=== PATIENT | male | born 2000 | race Caucasian/White ===

== ENCOUNTER 2018-01-06 09:26 | Emergency (ER) | payer OTHER ==
[~2018-01-06] VITALS: Ht 182.9 cm; Wt 113.4 kg
--- NOTE | 2018-01-06 09:31 | ED.ADGEN ---
Adult General Chief Complaint Chief Complaint Epigastric pain and vomiting HPI HPI The patient was well until this morning at 4 AM when he awoke with epigastric pain and vomiting. His pain was 8/10 in severity, no radiating. No chest pain or SOB. Review of Systems Review of Systems Constitutional: Denies fever or chills Eyes: Denies change in visual acuity, redness, or eye pain HENT: Denies nasal congestion or sore throat Respiratory: Denies cough or shortness of breath Cardiovascular: Denies chest pain or palpitations GI: With epigastric abdominal pain, nausea, vomiting, no bloody stools or diarrhea : Denies dysuria or hematuria Musculoskeletal: Denies back pain or joint pain Integument: Denies rash or skin lesions Neurologic: Denies headache, focal weakness or sensory changes Endocrine: Denies polyuria or polydipsia All other systems were reviewed and found to be within normal limits, except as documented in this note. Family History Family History Sister had cholecystectomy Current Medications Current Medications Current Medications Medications (Trade) Dose Ordered Sig/Rich Start Time Stop Time Status Last Admin Dose Admin Dextrose/Sodium Chloride 1,000 ml @ 125 mls/hr 1X ONCE 01/06/18 12:45 01/06/18 20:44 01/06/18 12:45 125 MLS/HR Famotidine (Pepcid Vial) 20 mg 1X ONCE 01/06/18 10:15 01/06/18 10:16 DC 01/06/18 10:08 20 MG Iohexol (Omnipaque 300 Mg/ml) 75 ml 1X ONCE 01/06/18 11:00 01/06/18 11:01 DC 01/06/18 11:14 75 ML Morphine Sulfate (Morphine 4mg Syringe) 4 mg 1X ONCE 01/06/18 11:00 01/06/18 11:01 DC 01/06/18 10:37 4 MG Ondansetron HCl (Zofran) 4 mg 1X ONCE 01/06/18 10:10 01/06/18 10:11 DC 01/06/18 10:08 4 MG Sodium Chloride 1,000 ml @ 1,000 mls/hr 1X ONCE 01/06/18 10:45 01/06/18 11:44 DC 01/06/18 10:56 1,000 MLS/HR Allergies Allergies Allergies Coded Allergies Type Severity Reaction Last Updated Verified No Known Drug Allergies 01/06/18 No Physical Exam Physical Exam Constitutional: Well developed, well nourished, no acute distress, non-toxic appearance. HENT: Normocephalic, atraumatic, bilateral external ears normal, oropharynx dry , no oral exudates, nose normal. Eyes: PERRLA, EOMI, conjunctiva normal, no discharge. Neck: Normal range of motion, no tenderness, supple, no stridor. Cardiovascular: Heart rate regular rhythm, no murmur Lungs & Thorax: Bilateral breath sounds clear to auscultation Abdomen: Bowel sounds normal, soft, with epigastric and RUQ tenderness, no masses, no pulsatile masses. Skin: Warm, dry, no erythema, no rash. Back: No tenderness, no CVA tenderness. Extremities: No tenderness, no cyanosis, no clubbing, ROM intact, no edema. Neurologic: Alert and oriented X 3, normal motor function, normal sensory function, no focal deficits noted. Psychologic: Affect normal, judgement normal, mood normal. Current Patient Data Vital Signs Vital Signs Date Time Temp Pulse Resp B/P (MAP) Pulse Ox O2 Delivery O2 Flow Rate FiO2 01/06/18 12:22 98 160/99 (119) 98 Room Air 01/06/18 10:57 20 01/06/18 09:26 98.7 Lab Results Laboratory Tests Test 01/06/18 09:55 01/06/18 11:10 White Blood Count 13.4 x10^3/uL (4.0-11.0) H Red Blood Count 5.32 x10^6/uL (4.30-5.70) Hemoglobin 15.5 g/dL (13.0-17.5) Hematocrit 45.2 % (39.0-53.0) Mean Corpuscular Volume 85 fL (79-100) Mean Corpuscular Hemoglobin 29 pg (25-35) Mean Corpuscular Hemoglobin Concent 34 g/dL (31-37) Red Cell Distribution Width 13.3 % (11.5-14.5) Platelet Count 358 x10^3/uL (140-400) Neutrophils (%) (Auto) 80 % (31-73) H Lymphocytes (%) (Auto) 14 % (24-48) L Monocytes (%) (Auto) 6 % (0-9) Eosinophils (%) (Auto) 1 % (0-3) Basophils (%) (Auto) 1 % (0-3) Neutrophils # (Auto) 10.6 x10^3uL (1.8-7.7) H Lymphocytes # (Auto) 1.9 x10^3/uL (1.0-4.8) Monocytes # (Auto) 0.7 x10^3/uL (0.0-1.1) Eosinophils # (Auto) 0.1 x10^3/uL (0.0-0.7) Basophils # (Auto) 0.1 x10^3/uL (0.0-0.2) Sodium Level 138 mmol/L (136-145) Potassium Level 4.6 mmol/L (3.5-5.1) Chloride Level 104 mmol/L (98-107) Carbon Dioxide Level 23 mmol/L (21-32) Anion Gap 11 (6-14) Blood Urea Nitrogen 16 mg/dL (8-26) Creatinine 0.8 mg/dL (0.7-1.3) Estimated GFR (Cockcroft-Gault) 124.5 BUN/Creatinine Ratio 20 (6-20) Glucose Level 130 mg/dL (70-99) H Calcium Level 9.5 mg/dL (8.5-10.1) Total Bilirubin 0.3 mg/dL (0.2-1.0) Aspartate Amino Transferase (AST) 19 U/L (15-37) Alanine Aminotransferase (ALT) 27 U/L (16-63) Alkaline Phosphatase 153 U/L (46-116) H Total Protein 7.7 g/dL (6.4-8.2) Albumin 4.2 g/dL (3.4-5.0) Albumin/Globulin Ratio 1.2 (1.0-1.7) Lipase 124 U/L (73-393) Urine Collection Type Unknown Urine Color Yellow Urine Clarity Clear Urine pH 6.0 Urine Specific [place] 1.025 Urine Protein Neg (NEG-TRACE) Urine Glucose (UA) Neg mg/dL (NEG) Urine Ketones (Stick) Neg mg/dL (NEG) Urine Blood Trace (NEG) Urine Nitrite Neg (NEG) Urine Bilirubin Neg (NEG) Urine Urobilinogen Dipstick 0.2 mg/dL (0.2 mg/dL) Urine Leukocyte Esterase Neg (NEG) Urine RBC 0 /HPF (0-2) Urine WBC 0 /HPF (0-4) Urine Squamous Epithelial Cells None /LPF Urine Bacteria 0 /HPF (0-FEW) Urine Mucus Slight /LPF EKG EKG [] Radiology/Procedures Radiology/Procedures [address] [address] IMAGING REPORT Signed PATIENT: JAYME HOFF ACCOUNT: [id number] : 2000 LOCATION: ER AGE: 17 SEX: M EXAM STATUS: PRE ER ORD. PHYSICIAN: GABRIEL TAYLOR MD REASON: pain vomiting PROCEDURE: ACUTE ABDOMEN SERIES Acute Abdominal Series: Technique: PA view of the chest and supine and upright views of the abdomen were obtained. History: Pain. Comparison: None. Findings: The lungs and pleural margins are clear. There is air and stool scattered throughout the colon. There is a paucity small bowel gas. There is no free air. Impression: Radiographically normal acute abdominal series. Electronically signed by: Marjan Chan III, MD (01/06/2018 10:13 AM) [facility] DICTATED AND SIGNED BY: MARJAN CHAN III, MD DATE: 01/06/18 1012 CC: DION RAE DO; GABRIEL TAYLOR MD ~ [address] [address] IMAGING REPORT Signed PATIENT: JAYME HOFF ACCOUNT: [id number] : 2000 LOCATION: ER AGE: 17 SEX: M EXAM STATUS: PRE ER ORD. PHYSICIAN: GABRIEL TAYLOR MD REASON: RUQ pain PROCEDURE: CT ABD PELV W/ IV CONTRST ONLY CT SCAN OF THE ABDOMEN AND PELVIS WITH IV CONTRAST. History: Right lower abdominal pain and vomiting Comparison:None. Procedure: Contiguous axial images of the abdomen and pelvis were performed after the administration of 75 cc of Omni 300 IV contrast and without oral contrast. CT Abdomen with contrast: Findings: There is multiple stones in the gallbladder. There is no gallbladder wall thickening or surrounding fluid. There is mildly dilated proximal loops of small bowel and collapsed distal loops of small bowel. There is a transition zone seen in the image #13 of the coronal sequence. Liver: Unremarkable Spleen: Unremarkable Pancreas: Unremarkable Adrenal Glands: Unremarkable Kidneys: Unremarkable There is no mass or lymphadenopathy. There is no free air. There is no free fluid. CT Pelvis with Contrast: Findings: The urinary bladder appears normal. There is no free fluid. There is no lymphadenopathy. The appendix is normal. Impression: Partial proximal to mid small bowel obstruction. PQRS Compliance Statement: One or more of the following individualized dose reduction techniques were utilized for this examination: 1. Automated exposure control 2. Adjustment of the mA and/or kV according to patient size 3. Use of iterative reconstruction technique Electronically signed by: Marjan Chan III, MD (01/06/2018 11:48 AM) [facility] DICTATED AND SIGNED BY: MARJAN CHAN III, MD DATE: 01/06/18 1140 CC: DION RAE DO; GABRIEL TAYLOR MD ~ Course & Med Decision Making Course & Med Decision Making Patient presents with upper abdominal pain and vomiting DDx- Gastritis, PUD, pancreatitis, biliary colic, cholecystitis, obstruction The patient was stable in the ED improved after IV NS hydration, morphine and Zofran with decreased pain and nausea. Labs remarkable for leukocytosis, elevated alkaline phosphatase. Abdominal series x-rays unremarkable. CT abdomen and pelvis showed partial small bowel obstruction and gallstones. Patient had fatty meal last night and likely has biliary colic which maybe causing his symptoms. Patient will need further evaluation of his gallbladder to rule out cholecystitis. 12:30PM Case discussed with Dr. Celaya who agrees with admission for further evaluation with HIDA scan to rule out cholecystitis Final Impression Final Impression Clinical Impression Partial small bowel obstruction Gallstones Cassie Disclaimer Cassie Disclaimer This electronic medical record was generated, in whole or in part, using a voice recognition dictation system. Departure Departure: Impression: Primary Impression: Partial small bowel obstruction Additional Impression: Gallstones Disposition: 05 XFER OTHER (Transfer to [facility] [place]-Dr. Celaya accepting) Condition: STABLE GABRIEL TAYLOR MD Jan 06, 2018 09:31
[2018-01-06] MEDS ORDERED: IV NORMAL SALINE 1,000ML 1,000 ML IV ONE ×2 (09:45→10:45)
[2018-01-06] MEDS ORDERED: ONDANSETRON PF 4 MG/2 ML VIAL. IV ONE (10:10)
[2018-01-06 10:14] LABS: BASO # 0.1 x10^3/uL (0.0-0.2); BASO % 1 % (0-3); EOS # 0.1 x10^3/uL (0.0-0.7); EOS % 1 % (0-3); HEMATOCRIT 45.2 % (39.0-53.0); HEMOGLOBIN 15.5 g/dL (13.0-17.5); LYMPH # 1.9 x10^3/uL (1.0-4.8); LYMPH % 14 % (24-48); MEAN CORPUSCULAR HEMOGLOBIN 29 pg (25-35); MEAN CORPUSCULAR HGB CONC 34 g/dL (31-37); MEAN CORPUSCULAR VOLUME 85 fL (79-100); MONO # 0.7 x10^3/uL (0.0-1.1); MONO % 6 % (0-9); NEUT # 10.6 x10^3uL (1.8-7.7); NEUT % 80 % (31-73); PLATELET COUNT 358 x10^3/uL (140-400); RED BLOOD COUNT 5.32 x10^6/uL (4.30-5.70); RED CELL DISTRIBUTION WIDTH 13.3 % (11.5-14.5); WHITE BLOOD COUNT 13.4 x10^3/uL (4.0-11.0)
[2018-01-06] MEDS ORDERED: FAMOTIDINE 20 MG/2 ML VIAL IVP ONE (10:15)
--- NOTE | 2018-01-06 10:17 | RAD ---
Acute Abdominal Series: Technique: PA view of the chest and supine and upright views of the abdomen were obtained. History: Pain. Comparison: None. Findings: The lungs and pleural margins are clear. There is air and stool scattered throughout the colon. There is a paucity small bowel gas. There is no free air. Impression: Radiographically normal acute abdominal series. Electronically signed by: Paulo Mcwilliams III, MD (01/06/2018 10:13 AM) [facility]
[2018-01-06 10:27] LABS: ALBUMIN 4.2 g/dL (3.4-5.0); ALBUMIN/GLOBULIN RATIO 1.2 (1.0-1.7); CALCIUM 9.5 mg/dL (8.5-10.1); CREATININE 0.8 mg/dL (0.7-1.3); GFR 124.5; POTASSIUM 4.6 mmol/L (3.5-5.1); TOTAL BILIRUBIN 0.3 mg/dL (0.2-1.0); TOTAL PROTEIN 7.7 g/dL (6.4-8.2)
[2018-01-06] MEDS ORDERED: MORPHINE SULFATE 4 MG/ML DISP.SYRIN. IV ONE (11:00)
[2018-01-06] MEDS ORDERED: IOHEXOL 300 MG/ML 75 ML VIAL. IV ONE (11:00)
[2018-01-06 11:30] LABS: BACTERIA,URINE 0 /HPF (0-FEW); BILIRUBIN,URINE NEG (NEG); CLARITY,URINE CLEAR; COLOR,URINE YELLOW; GLUCOSE,URINE NEG (NEG); NITRITE,URINE NEG (NEG); RBC,URINE 0 /HPF (0-2); UROBILINOGEN,URINE 0.2 mg/dL (0.2 mg/dL); WBC,URINE 0 /HPF (0-4)
--- NOTE | 2018-01-06 11:52 | RAD ---
CT SCAN OF THE ABDOMEN AND PELVIS WITH IV CONTRAST. History: Right lower abdominal pain and vomiting Comparison:None. Procedure: Contiguous axial images of the abdomen and pelvis were performed after the administration of 75 cc of Omni 300 IV contrast and without oral contrast. CT Abdomen with contrast: Findings: There is multiple stones in the gallbladder. There is no gallbladder wall thickening or surrounding fluid. There is mildly dilated proximal loops of small bowel and collapsed distal loops of small bowel. There is a transition zone seen in the image #13 of the coronal sequence. Liver: Unremarkable Spleen: Unremarkable Pancreas: Unremarkable Adrenal Glands: Unremarkable Kidneys: Unremarkable There is no mass or lymphadenopathy. There is no free air. There is no free fluid. CT Pelvis with Contrast: Findings: The urinary bladder appears normal. There is no free fluid. There is no lymphadenopathy. The appendix is normal. Impression: Partial proximal to mid small bowel obstruction. PQRS Compliance Statement: One or more of the following individualized dose reduction techniques were utilized for this examination: 1. Automated exposure control 2. Adjustment of the mA and/or kV according to patient size 3. Use of iterative reconstruction technique Electronically signed by: Paulo Mcwilliams III, MD (01/06/2018 11:48 AM) [facility]
[2018-01-06] MEDS ORDERED: IV DEXTROSE 5 %-0.45 % NACL 1,000 ML IV ONE (12:45)
[2018-01-06 14:03] VITALS: BP 167/103
[2018-01-06] MEDS ORDERED: ceFAZolin SODIUM 2 GM in IV DEXTROSE 5% 50 ML IV ONE (17:30)
== END 2018-01-06 14:41 | disposition short-term general hospital (02) ==
LOC: ER 09:26
DX: K56.690 Other partial intestinal obstruction (principal); K80.80 Other cholelithiasis without obstruction
CPT/HCPCS: 36415; 74022; 74177; 80053; 81001; 83690; 85025; 96361; 96374; 96375; 99285; J2270; J2405; Q9967; S0028; J7030